=== PATIENT | female | born 1945 | race Caucasian/White ===

== ENCOUNTER 2020-07-05 07:22 | Day surgery (SDC) | payer OTHER ==
[2020-07-01 11:34] LABS: Potassium 4.3 mmol/L (3.5-5.1)
[2020-07-01 11:36] LABS: Absolute Lymphocytes (CBC) 2.3 K/uL (0.7-4.9); Basophils % 1.4 % (0-1.3); Hematocrit 37.1 % (36.0-45.0); Lymphocytes % 34.4 % (15.3-44.8); MPV 8.7 fL (7.6-11.3); RBC Red Blood Cell Count 3.84 M/uL (3.86-4.86)
--- NOTE | 2020-07-01 11:50 | RAD REPORT ---
EXAM DESCRIPTION: RAD - Chest Pa And Lat (2 Views) - 07/01/2020 11:17 am CLINICAL HISTORY: pre oppatient pending angiogram, history of breast cancer and hypertension COMPARISON: December 2007 TECHNIQUE: Frontal and lateral views of the chest were obtained. FINDINGS: The lungs are clear of an acute infiltrate. Numerous granulomatous calcifications are seen in the lung bruno not substantially different from comparison. Interstitial markings are prominent but not clearly different. No mass or consolidations seen. Trachea is midline. Pericardial fat pads are present. Surgical clips are present in the left breast and left axilla region. Breast tissue asym metry is present possibly from lumpectomy or mastectomy. Pericardial fat pads are present. Heart size is normal and central vasculature is within normal limit s. No pleural effusion or pneumothorax seen. No acute bony finding noted. No aortic abnormality. IMPRESSION: Chronic lung parenchymal changes are present not substantially different from the remote 2007 study. No acute chest finding seen.
--- OUTSIDE RECORDS SUMMARY | 2020-07-05 07:29 | XMS REPORT | Clinical Summary ---
:1945 Author Organization [facility] Address [address] [place] [address] Care Team Providers Name Role Phone Aaron Topete MD Primary Care Provider Allergies Active Allergy Reactions Severity Noted Date Comments Corticosteroids (Glucocorticoids) 017 Iodine And Iodide Containing Products 01/2017 Medications Medication Sig Dispensed Refills Start Date End Date Status propranolol (INDERAL) Take 40 mg by 0 Active 40 MG tablet mouth 3 (three) times daily. lisinopril Take 10 mg by 0 Activ e (PRINIVIL,ZESTRIL) 10 mouth daily. MG tablet levothyroxine Take 88 mcg by 0 A ctive (SYNTHROID, LEVOTHROID) mouth Every 88 MCG tablet morning on an empty stomach. Active Problems Not on file Social History Tobacco Use Types Packs/Day Years Used Date Former Smoker Quit: 08/13/19 01 Alcohol Use Drinks/Week oz/Week Comments No Sex Assigned at Date Recorded Not on file Last Filed Vital Signs Not on file Plan of Treatment Not on file Results Not on fileafter 07/05/2019 Insurance Payer Benefit Plan / Subscriber ID Effective Dates Phone Addre ss Type Group MEDICARE MEDICARE A B [id number] 2012-Present Medicare OTHER-[employer] [id number] 2013-Tawny giles Guarantor Name Account Type Relation to Date of Phone Billing Patient Address Dianelys Rg Personal/Family Self 1945 [address] (Home) [place] [address]
[2020-07-05] MEDS ORDERED: NA CHLORIDE 0.9% 500 ML ONE (07:40)
[2020-07-05] MEDS ORDERED: HEPARIN 5000 UNIT/ML 1 ML VIAL ONE ×2 (15:39→16:23)
[2020-07-05] MEDS ORDERED: MIDAZOLAM HCL 2 MG/2 ML INJ ONE (15:39)
[2020-07-05] MEDS ORDERED: ATROPINE SULF 1 MG/10 ML SYR IV ONE (15:40)
[2020-07-05] MEDS ORDERED: FENTANYL CITR 100 MCG/2 ML ONE (15:40)
[2020-07-05] MEDS ORDERED: HEPA 1000U/500MLS 2,000 UNIT/1,000 ML BAG IV ONE (15:42)
[2020-07-05] MEDS ORDERED: LIDOCAINE 1% 20 ML MDV ONE (16:04)
[2020-07-05] MEDS ORDERED: HYDRALAZINE HCL 20 MG/ML VIAL ONE (17:14)
[2020-07-05] MEDS ORDERED: CLOPIDOGREL 75 MG TABLET ONE (17:24)
[2020-07-05] MEDS ORDERED: ASPIRIN 325 MG TAB ONE (17:36)
[2020-07-05] MEDS ORDERED: ONDANSETRON 4 MG/2 ML VIAL ONE (18:00)
[2020-07-05 19:44] VITALS: TEMP 97.3
[2020-07-05 21:17] VITALS: BP 143/54; O2SAT 98
--- NOTE | 2020-07-05 22:30 | OP ---
Date of Procedure: 07/05/2020 Surgeon: NAS MOTTA Procedure Performed: 1.Distal aortogram with runoff and peripheral angiogram. 2.Percutaneous intervention of severe iliac artery stenosis, 95% stenosis, using an Omnilink 8 x 39 mm stent and post dilated using 10 x 40 mm Conover balloon with excellent results. Complications: None. Bleeding: Less than 50 mL. Total Sedation Time: 65 minutes. Description Of Procedure: After risks, benefits, and alternatives were explained, the patient agreed to the procedure and signed informed consent. The patient was brought into the cardiac catheterizat ion laboratory, prepped and draped in usual sterile fashion. Then, we accessed the right femoral art srinath under fluoroscopy and ultrasound guidance, and then we took a short pigtail into the distal aorta and we did a distal aortogram runoff and then we decided intervention on the iliac artery. We took a short 6-Indian destination sheath into the femoral artery and exchanged of the pinnacle sheath. In itially a Wholey wire would not pass through, so we took a short run-through wire and tried to pass a n Conover balloon, however, would not go through the stenosis, so we took a 3.0 x 20 mm NC coronary ba lloon and pre-dilated the lesion and then took an 8 mm x 40 mm Conover balloon, and then pre-dilated t he lesion and then we took an 8 x 39 mm Omnilink stent across the lesion, deployed it successfully an d then we took the 10 mm x 40 mm Conover balloon and post dilated the stent with good results and no c omplications. Then, we took all the catheters and wires out and the sheath was removed and closed th e site with 6-Indian Angio-Seal with good hemostasis. Findings: 1.Severe right common iliac artery stenosis, 95%, status post stent placement as above with 0% resid ual stenosis. 2.The right SFA has mid 70% stenosis, focal and then below-knee arteries are patent without signific ant stenosis. On the left side, the femoral artery has about 30% to 40%, and profunda on the left an d right are patent, and the SFA on the left side has 30% focal stenosis and then diffuse 10-30% throu ghout and balloon in the knee arteries are patent. Impression: 1.Severe right common iliac artery stenosis, status post balloon angioplasty and stent placement as outlined above with good results. 2.Focal 70% stenosis of the right superficial femoral artery, which was not meant to be done today d ue to contrast load. 3.Mild to moderate left lower extremity stenosis as outlined above. Recommendations: 1.Loaded with 600 mg of Plavix, continue 75 mg daily along with aspirin 81 mg daily and Lipitor 40 m g at bedtime. 2.We will evaluate in 4 weeks in the office. If symptoms resolved, then we will do no further inter vention. If symptoms continues to be there, we will plan to bring back to cardiac catheterization la boratory to fix the right mid SFA stenosis. SR/MODL Voice ID: [id number] Report ID: [id number]
== END 2020-07-05 21:18 | disposition home or self-care (01) ==
LOC: CCL 07:22
PROVIDERS: ATTEND Internal Medicine
DX: I70.211 Atherosclerosis of native arteries of extremities with intermittent claudication, right leg (principal); Z20.828 Contact with and (suspected) exposure to other viral communicable diseases; I10 Essential (primary) hypertension; E78.5 Hyperlipidemia, unspecified; E03.9 Hypothyroidism, unspecified; E66.9 Obesity, unspecified; I48.20 Chronic atrial fibrillation, unspecified
CPT/HCPCS: 85025; 80048; 36415; 85610; 85347 ×2; 85730; 71046; 36200; 75630; 37221; U0002; C1893; C1760; J0360; J1644 ×2; J2250; J3010; J7040; J2405

== ENCOUNTER 2021-04-26 07:18 | Emergency (ER) | payer OTHER ==
[2021-04-26 08:15] LABS: Absolute Lymphocytes (CBC) 1.2 K/uL (0.7-4.9); Basophils % 0.2 % (0-1.3); Hematocrit 38.6 % (36.0-45.0); Lymphocytes % 18.6 % (15.3-44.8); MPV 7.7 fL (7.6-11.3); RBC Red Blood Cell Count 4.14 M/uL (3.86-4.86)
[2021-04-26 08:18] LABS: Protime INR 1.11
[2021-04-26] MEDS ORDERED: METHYLPREDNISOLONE 125 MG INJ ONE (08:21)
[2021-04-26] MEDS ORDERED: ASPIRIN EC 81 MG TAB PO ONE (08:21)
[2021-04-26] MEDS ORDERED: FAMOTIDINE 20 MG TAB ONE (08:21)
[2021-04-26] MEDS ORDERED: predniSONE 20 MG TAB ONE (08:21)
[2021-04-26] MEDS ORDERED: NA CHLORIDE 0.9% 1,000 ML ONE (08:21)
[2021-04-26] MEDS ORDERED: NA CHLORIDE 0.9% 500 ML ONE (08:22)
[2021-04-26] MEDS ORDERED: ALBUTEROL INHALER 60 PUFF/8 GM IH ONE (08:22)
--- NOTE | 2021-04-26 08:36 | RAD REPORT ---
EXAM DESCRIPTION: RAD - Chest Single View - 04/26/2021 8:26 am CLINICAL HISTORY: COUGH Chest pain. COMPARISON: Chest Pa And Lat (2 Views) dated 07/01/2020; CHEST PA AND LAT 2 VIEW dated 12/30/2007; CH EST SINGLE VIEW dated 09/10/2006; 3D DIAG GOOD RT UNI W/CAD dated 11/24/2020 FINDINGS: Portable technique limits examination quality. Small calcified granulomas are present bilaterally. Interstitial lung opacities are mildly prominent. The heart is moderately enlarged in size. No displaced fractures. IMPRESSION: Mild prominence of pulmonary interstitial markings may indicate interstitial pulmonary e alberto or viral infection.
[2021-04-26] MEDS ORDERED: AZITHROMYCIN 250 MG TAB ONE (08:40)
[2021-04-26] MEDS ORDERED: DIPHENHYDRAMINE 50 MG/ML VIAL ONE (08:40)
[2021-04-26 08:46] LABS: ALT/SGPT 57 U/L (12-78); AST/SGOT 32 U/L (15-37); Albumin 3.4 g/dL (3.4-5.0); Alkaline Phosphatase 72 U/L (45-117); BUN Blood Urea Nitrogen 4 mg/dL (7-18); Bicarbonate 26 mmol/L (21-32); Bilirubin Direct 0.2 mg/dL (0-0.2); Bilirubin Total 0.9 mg/dL (0.2-1.0); C-Reactive Protein < 2.90 mg/L (<3.00); Ferritin 472.9 ng/mL (8-388); Glucose Level 94 mg/dL (74-106); Magnesium 2.1 mg/dL (1.8-2.4); NT PRO-BNP 1127 pg/mL (<125); Potassium 3.6 mmol/L (3.5-5.1); Protein, Total 6.6 g/dL (6.4-8.2); Sodium Level 138 mmol/L (136-145); Troponin (Emerg Dept Use Only) < 0.02 ng/mL (0.0-0.045)
[2021-04-26 08:56] LABS: SARS-COV-2 RT PCR POSITIVE (NEGATIVE)
--- NOTE | 2021-04-26 10:03 | RAD REPORT ---
EXAM DESCRIPTION: CT - Chest For Pe Angio - 04/26/2021 9:08 am CLINICAL HISTORY: Chest pain. Cough;Dyspnea COMPARISON: No comparisons TECHNIQUE: CT angiogram of the pulmonary arteries was performed with MIP. All CT scans are performed using dose optimization technique as appropriate and may include automated exposure control or mA/KV adjustment according to patient size. FINDINGS: No evidence of pulmonary thromboembolism. No acute aortic finding demonstrated. Mild peripherally located lung opacities bilaterally. No significant pericardial or pleural fluid. No concerning bony finding. IMPRESSION: No evidence of pulmonary thromboembolism. Mild peripherally located bilateral lung opacities likely indicates COVID-19 infection.
--- NOTE | 2021-04-26 10:47 | ER ---
Nurse's Notes [facility] Name: Dianelys Rg Age: 75 yrs Sex: Female : 1945 Arrival Date: 04/26/2021 Time: 07:24 Bed DIS8 Private MD: Diagnosis: Coronavirus infection, unspecified;Pneumonia due to SARS-associated coronavirus;Chest pain on breathing;Dyspnea;Paroxysmal atrial fibrillation Presentation: 04/26 07:29 Chief complaint: Patient states: To ER VIA EMS c/o sob time 4 to 5 days. states 9 year kh1 old granddaughter tested positive. denies n/v/d. denies cp. o2 sats is 95% on room air. Coronavirus screen: Client denies travel out of the [place] in the last 14 days. difficulty breathing, fatigue. Ebola Screen: No symptoms or risks identified at this time. Initial Sepsis Screen: Does the patient meet any 2 criteria? No. Patient's initial sepsis screen is negative. Risk Assessment: Do you want to hurt yourself or someone else? Patient reports no desire to harm self or others. Onset of symptoms was April 25, 2021. 07:29 Method Of Arrival: EMS: [facility] 07:29 Acuity: SHANE 2 [facility] 07:50 Initial Sepsis Screen: Does the patient have a suspected source of infection? Yes: [facility] Other: possible covid. Triage Assessment: 07:29 General: Appears in no apparent distress. uncomfortable, well groomed, Behavior is [facility] calm, cooperative, appropriate for age. Pain: Denies pain. Historical: - Immunization history:: Adult Immunizations up to date, Client reports having NOT received the Covid vaccine. - Social history:: Smoking status: Patient denies any tobacco usage or history of. Patient/guardian denies using alcohol, street drugs, tobacco products. - Family history:: not pertinent. - Code Status:: Full code. Screenin:50 Abuse screen: Denies threats or abuse. Nutritional screening: No deficits noted. [facility] Tuberculosis screening: No symptoms or risk factors identified. Fall Risk IV access (20 points). Gait- Weak (10 pts.). Assessment: 07:35 Neuro: No deficits noted. Cardiovascular: Reports shortness of breath. Respiratory: [facility] Airway is patent. GI: No deficits noted. : No deficits noted. EENT: No deficits noted. 10:24 Reassessment: Patient appears in no apparent distress at this time. No changes from [facility] previously documented assessment. Patient and/or family updated on plan of care and expected duration. Pain level reassessed. Patient is alert, oriented x 3, equal unlabored respirations, skin warm/dry/pink. Vital Signs: 07:29 BP 140 / 79; Pulse 87; Resp 17; Temp 98.3(O); Pulse Ox 95% on R/A; kh1 07:29 BP 140 / 79; Pulse 87; Resp 17; Temp 98.3; Pulse Ox 95% on R/A; kh1 08:49 Weight 90.72 kg; Height 5 ft. 8 in. (172.72 cm); kh1 08:49 Body Mass Index 30.41 (90.72 kg, 172.72 cm) kh1 Vitals: 07:41 Cardiac Rhythm Assessment Regular. [facility] ED Course: 07:24 Patient arrived in ED. kh1 07:24 Yoko Murrieta is Primary Nurse. kh1 07:26 Chad Blas MD is Attending Physician. [facility] 07:29 Arm band placed on right wrist. kh1 07:33 Triage completed. kh1 07:45 Initial lab(s) drawn, by me, sent to lab. EKG done, by ED staff, reviewed by Chad Blas MD. Inserted saline lock: 20 gauge in right antecubital area, using aseptic technique. Blood collected. 07:50 Patient has correct armband on for positive identification. Placed in gown. Bed in low kh1 position. Call light in reach. Side rails up X2. 08:11 CBC with Automated Diff Sent. kh1 08:11 Basic Metabolic Panel Sent. kh1 08:12 Ferritin Sent. kh1 08:13 CRP Sent. kh1 08:13 Basic Metabolic Panel Sent. kh1 08:13 CBC with Diff Sent. kh1 08:13 LFT's Sent. kh1 08:13 Magnesium Sent. kh1 08:13 NT PRO-BNP Sent. kh1 08:13 PT-INR Sent. kh1 08:13 Troponin (emerg Dept Use Only) Sent. kh1 08:26 XRAY Chest (1 view) In Process Unspecified. EDMS 09:06 CT Chest For PE Angio In Process Unspecified. EDDC 10:47 Alma Terrell MD is Referral Physician. [facility] 12:09 No provider procedures requiring assistance completed. IV discontinued, intact, kh1 bleeding controlled, No redness/swelling at site. Pressure dressing applied. Administered Medications: 07:59 CANCELLED (Duplicate Order): Aspirin Chewable Tablet 324 mg PO once; 81 mg tablets x 4 [facility] 08:11 Drug: Albuterol HFA Inhaler 4 puffs Route: Inhalation; 1 08:12 Drug: NS 0.9% 500 ml Route: IV; Rate: bolus; Site: right antecubital; kh1 08:12 Drug: Pepcid (famotidine) 40 mg Route: PO; kh1 08:12 Drug: SOLU-Medrol (methylPrednisoLONE) 125 mg Route: IVP; Site: right antecubital; kh1 08:12 Drug: predniSONE 40 mg Route: PO; kh1 08:20 Drug: Zithromax (azithromycin) 500 mg Route: PO; kh1 08:36 Drug: Benadryl (diphenhydrAMINE) 37.5 mg Route: IVP; Site: right antecubital; 1 08:48 Drug: NS 0.9% 1000 ml Route: IV; Rate: 125 ml/hr; Site: right antecubital; 1 11:30 Drug: Eliquis (apixaban) 5 mg Route: PO; 1 Outcome: 10:47 Discharge ordered by . [facility] 12:09 Discharged to home [facility] 12:09 Condition: stable 12:09 Discharge instructions given to patient, Instructed on follow up and referral plans. medication usage, Demonstrated understanding of instructions, medications, Prescriptions given X 5 Following a medical screening exam, the patient was provided information regarding alternative care sites and resources available per registration personnel. 12:10 Patient left the ED. 1 Signatures: Dispatcher [employer] EDDC Chad Blas MD MD cha Jackson, Kandis kj1 Yoko Murrieta [facility] Corrections: (The following items were deleted from the chart) 07:51 07:36 Allergies: No Known Allergies; [facility]
--- NOTE | 2021-04-26 10:47 | EDPHYS ---
Physician Documentation [facility] Name: Dianelys Rg Age: 75 yrs Sex: Female : 1945 Arrival Date: 04/26/2021 Time: 07:24 Bed DIS8 Private MD: ED Physician Chad Blas HPI: 04/26 07:35 This 75 yrs old Female presents to ER via EMS with complaints of sob, covid yolie chest pain. Historical: - Immunization history:: Adult Immunizations up to date, Client reports having NOT received the Covid vaccine. - Social history:: Smoking status: Patient denies any tobacco usage or history of. Patient/guardian denies using alcohol, street drugs, tobacco products. - Family history:: not pertinent. - Code Status:: Full code. ROS: 07:36 Constitutional: Negative for fever, chills, and weight loss, Eyes: Negative for injury, yolie pain, redness, and discharge, ENT: Negative for injury, pain, and discharge, Neck: Negative for injury, pain, and swelling, Cardiovascular: Negative for chest pain, palpitations, and edema, Abdomen/GI: Negative for abdominal pain, nausea, vomiting, diarrhea, and constipation, Back: Negative for injury and pain, : Negative for injury, bleeding, discharge, and swelling, MS/Extremity: Negative for injury and deformity, Skin: Negative for injury, rash, and discoloration, Neuro: Negative for headache, weakness, numbness, tingling, and seizure, Psych: Negative for depression, anxiety, suicide ideation, homicidal ideation, and hallucinations, Allergy/Immunology: Negative for hives, rash, and allergies, Endocrine: Negative for neck swelling, polydipsia, polyuria, polyphagia, and marked weight changes. 07:36 Respiratory: Positive for cough. Exam: 07:36 Constitutional: This is a well developed, well nourished patient who is awake, alert, yolie and in no acute distress. Head/Face: Normocephalic, atraumatic. Eyes: Pupils equal round and reactive to light, extra-ocular motions intact. Lids and lashes normal. Conjunctiva and sclera are non-icteric and not injected. Cornea within normal limits. Periorbital areas with no swelling, redness, or edema. ENT: Nares patent. No nasal discharge, no septal abnormalities noted. Tympanic membranes are normal and external auditory canals are clear. Oropharynx with no redness, swelling, or masses, exudates, or evidence of obstruction, uvula midline. Mucous membranes moist. Neck: Trachea midline, no thyromegaly or masses palpated, and no cervical lymphadenopathy. Supple, full range of motion without nuchal rigidity, or vertebral point tenderness. No Meningismus. Chest/axilla: Normal chest wall appearance and motion. Nontender with no deformity. No lesions are appreciated. Cardiovascular: Regular rate and rhythm with a normal S1 and S2. No gallops, murmurs, or rubs. Normal PMI, no JVD. No pulse deficits. Respiratory: Lungs have equal breath sounds bilaterally, clear to auscultation and percussion. No rales, rhonchi or wheezes noted. No increased work of breathing, no retractions or nasal flaring. Abdomen/GI: Soft, non-tender, with normal bowel sounds. No distension or tympany. No guarding or rebound. No evidence of tenderness throughout. Back: No spinal tenderness. No costovertebral tenderness. Full range of motion. Skin: Warm, dry with normal turgor. Normal color with no rashes, no lesions, and no evidence of cellulitis. MS/ Extremity: Pulses equal, no cyanosis. Neurovascular intact. Full, normal range of motion. Neuro: Awake and alert, GCS 15, oriented to person, place, time, and situation. Cranial nerves II-XII grossly intact. Motor strength 5/5 in all extremities. Sensory grossly intact. Cerebellar exam normal. Normal gait. Psych: Awake, alert, with orientation to person, place and time. Behavior, mood, and affect are within normal limits. 08:17 ECG was reviewed by the Attending Physician. [facility] 10:48 ECG was reviewed by the Attending Physician. [facility] Vital Signs: 07:29 BP 140 / 79; Pulse 87; Resp 17; Temp 98.3(O); Pulse Ox 95% on R/A; kh1 07:29 BP 140 / 79; Pulse 87; Resp 17; Temp 98.3; Pulse Ox 95% on R/A; kh1 08:49 Weight 90.72 kg; Height 5 ft. 8 in. (172.72 cm); 1 08:49 Body Mass Index 30.41 (90.72 kg, 172.72 cm) kh1 MDM: 07:26 Patient medically screened. yolie 07:38 Differential diagnosis: Bronchitis Chronic Obstructive Pulmonary Disease pneumonia, yolie pulmonary edema, Pulmonary Embolism Unstable Angina. Antibiotic administration: The patient is discharged and will get outpatient antibiotics, Zithromax. The patient's Wells Deep Vein Thrombosis Score was calculated as follows: Total Score: 0-2 Pts- Low Risk. Differential Diagnosis: Bronchitis Influenza Upper Respiratory Infection Sinusitis Otitis Media. The patient's pulmonary embolism risk score was calculated as follows: Total Score: 0-2 points. This patient was found to be at low risk for a pulmonary embolism by using the Well's assessment criteria. Immunization status: Pneumococcal vaccine: Influenza vaccine: Data reviewed: vital signs, nurses notes, lab test result(s), EKG, radiologic studies, CT scan, plain films. Data interpreted: case monitor: rhythm is normal sinus rhythm. Test interpretation: by ED physician or midlevel provider: ECG. 04/26 07:35 Order name: Basic Metabolic Panel [facility] 04/26 07:35 Order name: CBC with Diff [facility] 04/26 07:35 Order name: LFT's; Complete Time: : [facility] 04/26 07:35 Order name: Magnesium; Complete Time: : [facility] 04/26 07:35 Order name: NT PRO-BNP; Complete Time: : [facility] 04/26 07:35 Order name: PT-INR; Complete Time: : [facility] 04/26 07:35 Order name: Troponin (emerg Dept Use Only); Complete Time: : [facility] 04/26 07:35 Order name: XRAY Chest (1 view); Complete Time: : [facility] 04/26 07:35 Order name: CRP; Complete Time: : [facility] 04/26 07:35 Order name: Ferritin; Complete Time: : [facility] 04/26 07:36 Order name: Basic Metabolic Panel; Complete Time: : EDDC 04/26 07:36 Order name: CBC with Automated Diff; Complete Time: : [facility] 04/26 08:56 Order name: COVID-19/FLU A+B; Complete Time: : [facility] 04/26 09:59 Order name: TSH [facility] 04/26 07:35 Order name: EKG; Complete Time: 07:36 [facility] 04/26 07:35 Order name: Cardiac monitoring; Complete Time: 07:55 [facility] 04/26 07:35 Order name: EKG - Nurse/Tech; Complete Time: 07:55 [facility] 04/26 07:35 Order name: IV Saline Lock; Complete Time: 07:55 [facility] 04/26 07:35 Order name: CT Chest For PE Angio; Complete Time: 10:06 [facility] 04/26 08:17 Order name: EKG; Complete Time: 08:17 [facility] 04/26 07:35 Order name: Labs collected and sent; Complete Time: 07:55 [facility] 04/26 08:17 Order name: EKG - Nurse/Tech; Complete Time: 08:27 [facility] EC:17 Rate is 88 beats/min. Rhythm is irregularly irregular. QRS Drums is Normal. CO interval yolie is normal. QRS interval is normal. QT interval is normal. No Q waves. T waves are Normal. No ST changes noted. Clinical impression: Atrial Fibrillation, Atrial Flutter, and No evidence of ischemia. Interpreted by me. Reviewed by me. 10:48 Rate is 86 beats/min. Rhythm is irregularly irregular. QRS Drums is Normal. CO interval yolie is normal. QRS interval is normal. QT interval is normal. No Q waves. T waves are Normal. No ST changes noted. Clinical impression: Atrial Fibrillation. Interpreted by me. Reviewed by me. Administered Medications: 07:59 CANCELLED (Duplicate Order): Aspirin Chewable Tablet 324 mg PO once; 81 mg tablets x 4 yolie 08:11 Drug: Albuterol HFA Inhaler 4 puffs Route: Inhalation; kh1 08:12 Drug: NS 0.9% 500 ml Route: IV; Rate: bolus; Site: right antecubital; kh1 08:12 Drug: Pepcid (famotidine) 40 mg Route: PO; kh1 08:12 Drug: SOLU-Medrol (methylPrednisoLONE) 125 mg Route: IVP; Site: right antecubital; kh1 08:12 Drug: predniSONE 40 mg Route: PO; kh1 08:20 Drug: Zithromax (azithromycin) 500 mg Route: PO; kh1 08:36 Drug: Benadryl (diphenhydrAMINE) 37.5 mg Route: IVP; Site: right antecubital; kh1 08:48 Drug: NS 0.9% 1000 ml Route: IV; Rate: 125 ml/hr; Site: right antecubital; kh1 11:30 Drug: Eliquis (apixaban) 5 mg Route: PO; kh1 Disposition Summary: 04/26/21 10:47 Discharge Ordered Location: Home yolie Problem: new yolie Symptoms: have improved yolie Condition: Stable yolie Diagnosis - Coronavirus infection, unspecified yolie - Pneumonia due to SARS-associated coronavirus yolie - Chest pain on breathing yolie - Dyspnea yolie - Paroxysmal atrial fibrillation yolie Followup: yolie - With: Private Physician - When: 2 - 3 days - Reason: Recheck today's complaints, Continuance of care, Re-evaluation by your physician Followup: yolie - With: Alma Terrell MD - When: 2 - 3 days - Reason: Recheck today's complaints, Continuance of care, Re-evaluation by your physician Discharge Instructions: - Discharge Summary Sheet yolie - Atrial Fibrillation yolie - Nonspecific Chest Pain, Adult yolie - Nonspecific Chest Pain, Adult, [id number] yolie - COVID-19 yolie - Atrial Fibrillation, [id number] yolie - COVID-19 Frequently Asked Questions [facility] - Things You Can Do to Manage Your COVID-19 Symptoms at Home - [facility] - Viral Illness, Adult [facility] - COVID-19: Quarantine vs. Isolation - [facility] Forms: - Medication Reconciliation Form [facility] - Thank You Letter [facility] - Antibiotic Education [facility] - Prescription Opioid Use [facility] Prescriptions: - albuterol sulfate 90 mcg/actuation Inhalation HFA aerosol inhaler - inhale 2 puff by INHALATION route every 4-6 hours; 1 Pump; Refills: 0, Product [facility] Selection Permitted - Pepcid 20 mg Oral Tablet - take 1 tablet by ORAL route every 12 hours for 15 days; 30 tablet; Refills: 0, [facility] Product Selection Permitted - Prednisone 20 mg Oral Tablet - take 2 tablets by ORAL route every 12 hours for 5 days; 20 tablet; Refills: 0, [facility] Product Selection Permitted - Eliquis 5 mg Oral tablet - take 1 tablet by ORAL route 2 times per day; 30 tablet; Refills: 0, Product [facility] Selection Permitted - Zithromax 500 mg Oral Tablet - take 1 tablet by ORAL route once daily for 4 days; 4 tablet; Refills: 0, [facility] Product Selection Permitted Signatures: Dispatcher [employer] Chad Cochran MD MD cha Harris, Kecia [facility] Corrections: (The following items were deleted from the chart) 07:51 07:36 Allergies: No Known Allergies; kh1 kh1 07:59 07:36 Aspirin Chewable Tablet 324 mg PO once; 81 mg tablets x 4 ordered. yolie urbano
[2021-04-26] MEDS ORDERED: APIXABAN 5 MG TABLET ONE (11:29)
[2021-04-26 12:31] VITALS: BP 140/79; TEMP 98.3; O2SAT 95
--- NOTE | 2021-04-27 08:17 | EKG ---
Test Date: 2021-04-26 Test Time: 07:38:46 [employer] Manager: ELIJAH MEASUREMENT RESULTS: Intervals: Rate: 88 VT: QRSD: 88 QT: 378 QTc: 457 [place]: P: VT: QRS: 68 T: 88 INTERPRETIVE STATEMENTS: Atrial fibrillation Possible Anterior infarct, age undetermined Abnormal ECG Compared to ECG 05/23/2010 08:18:54 Myocardial infarct finding now present Sinus bradycardia no longer present Sinus arrhythmia no longer present Electronically Signed On 04-27-21 08:14:26 CDT by Genaro Walker
--- NOTE | 2021-04-27 08:17 | EKG ---
Test Date: 2021-04-26 Test Time: 09:50:24 Partner Manager: ELIJAH MEASUREMENT RESULTS: Intervals: Rate: 86 WA: QRSD: 84 QT: 390 QTc: 466 Hi Hat: P: [place]: QRS: 47 T: 35 INTERPRETIVE STATEMENTS: Atrial fibrillation Possible Anterior infarct, age undetermined Abnormal ECG Compared to ECG 04/26/2021 07:38:46 No significant changes Electronically Signed On 04-27-21 08:14:24 CDT by Genaro Walker
== END 2021-04-26 12:10 | disposition home or self-care (01) ==
LOC: ER 07:18
DX: U07.1 COVID-19 (principal); J12.82 Pneumonia due to coronavirus disease 2019; I48.0 Paroxysmal atrial fibrillation; R06.00 Dyspnea, unspecified
CPT/HCPCS: 93005 ×2; 85025; 80048; 36415; 83735; 85610; 80076; 84443; 84484; 82728; 83880; 0240U; 86140; 71275; 71045; 96375; 96374; 99284; Q9967; J1200; J7040; J7030; J2930; J7512